=== PATIENT | female | born 1975 | race Caucasian/White ===

== ENCOUNTER 2018-03-12 08:36 | Emergency (ER) | END 2018-03-12 11:45 | disposition home or self-care (01) ==

== ENCOUNTER 2018-03-14 13:13 | Emergency (ER) | END 2018-03-14 16:50 | disposition home or self-care (01) ==

== ENCOUNTER 2018-10-31 13:50 | Emergency (ER) | payer BC, MEDICAID ==
[~2018-10-31] VITALS: Wt 100.0 kg
[~2018-10-31 13:50] MED LIST: DICY20TA59; ESOM20CA; VIC
[2018-10-31 13:57] VITALS: BP 120/65; PULSE 65; RESP 18
--- NOTE | 2018-10-31 16:23 | ERD ---
ER Documentation Chief Complaint Chief Complaint 8 WEEKS WITH SPOTTING HPI 43-year-old G3, P1 8-week female with no reported past medical history who presents with complaint of single episode of vaginal spotting. Reports episode of vaginal spotting without clots approximate 20 minutes before this evaluation. Denies any prior episodes of spotting or bleeding prior to presentation. Has had mild intermittent bilateral back pain. Reports a miscarriage last year in March at 5 weeks. She is concerned that she may have having symptoms secondary to likely . She otherwise is without complaint, denying fevers, chills, chest pain, shortness of breath, nausea, vomiting, diarrhea, urinary symptoms. ROS All systems reviewed and are negative except as per history of present illness. Medications Home Meds Reported Medications Dicyclomine Hcl* (Bentyl*) 20 Mg Tablet 11/12/10 Esomeprazole Mag Trihydrate (Nexium) 20 Mg Capsule. 11/12/10 Acetaminophen/Hydrocodone (Vicodin) 1 Tab Tab 11/12/10 Allergies Allergies: Coded Allergies: No Known Allergy (Verified , 03/12/18) PMhx/Soc History of Surgery: Yes () Anesthesia Reaction: No Hx Neurological Disorder: No Hx Respiratory Disorders: No Hx Cardiac Disorders: No Hx Psychiatric Problems: No Hx Miscellaneous Medical Probl: No Hx Alcohol Use: No Hx Substance Use: No Hx Tobacco Use: No Smoking Status: Never smoker FmHx Family History: No diabetes, No coronary disease, No other Physical Exam Vitals Vital Signs Date Temp Pulse Resp B/P (MAP) Pulse Ox O2 O2 Flow FiO2 Time Delivery Rate 10/31/18 98.1 65 18 120/65 99 13:57 (83) Physical Exam Const: No acute distress Head: Atraumatic Eyes: Normal Conjunctiva ENT: Normal External Ears, Nose and Mouth. Neck: Full range of motion. No meningismus. Resp: Clear to auscultation bilaterally Cardio: Regular rate and rhythm, no murmurs Abd: Soft, non tender, non distended. Normal bowel sounds Skin: No petechiae or rashes Back: No midline or flank tenderness Ext: No cyanosis, or edema Neur: Awake and alert Psych: Normal Mood and Affect Result Diagram: 10/31/18 1535 Results 24 hrs Laboratory Tests Test 10/31/18 15:34 White Blood Count 8.8 10^3/ul Red Blood Count 4.75 10^6/ul Hemoglobin 14.2 g/dl Hematocrit 43.2 % Mean Corpuscular Volume 90.9 fl Mean Corpuscular Hemoglobin 29.9 pg Mean Corpuscular Hemoglobin Concent 32.9 g/dl Red Cell Distribution Width 13.2 % Platelet Count 357 10^3/UL Mean Platelet Volume 9.2 fl Immature Granulocytes % 0.200 % Neutrophils % 75.8 % Lymphocytes % 18.4 % Monocytes % 3.9 % Eosinophils % 1.4 % Basophils % 0.3 % Nucleated Red Blood Cells % 0.0 /100WBC Immature Granulocytes # 0.020 10^3/ul Neutrophils # 6.6 10^3/ul Lymphocytes # 1.6 10^3/ul Monocytes # 0.3 10^3/ul Eosinophils # 0.1 10^3/ul Basophils # 0.0 10^3/ul Nucleated Red Blood Cells # 0.0 10^3/ul Procedures/MDM 43-year-old 8-week female presents with vaginal bleeding/spotting. Likely secondary to her normal bleeding in early . Considered ectopic , spectrum of miscarriage/ (threatened, inevitable, incomplete, complete, septic) as well as causes of female-specific abdominal pain unrelated to (e.g., pelvic inflammatory disease with or without tubo-ovarian abscess, Xxib-Rukx-Rxceae, etc.). Also considered causes of abdominal pain that are not gender-specific (e.g., appendicitis, volvulus, small bowel obstruction, mesenteric adenitis, acute cholecystitis/choledocholithiasis and other biliary pathology, etc.). Patient well-appearing with normal vital signs. Gave patient s trict return precautions for worsening pain, increased vaginal bleeding, fever (temperature above 100.4F), lightheadedness/syncope or other concerns. Transvaginal/transabdominal ultrasound demonstrated at 8 weeks gestation. 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 H&H stable UA without evidence of acute infection DISPOSITION PLAN: We discussed follow up with the patient's primary care doctor within 24 to 48 hours. Patient counseled regarding my diagnostic impression and care plan. Prior to discharge all questions answered. Pt agrees with treatment plan and unders tands strict return precautions. Precautionary instructions provided including instructions to return to the ER if not improving or for any worsening or changing symptoms or concerns. Disclaimer: Inadvertent spelling and grammatical errors are likely due to EHR/dictation software use and do not reflect on the overall quality of patient care. Also, please note that the electronic time recorded on this note does not necessarily reflect the actual time of the patient encounter. Departure Diagnosis: Primary Impression: Vaginal bleeding in patient at less than 20 weeks ges... Condition: Stable Patient Instructions: Bleeding During Early Referrals: KERRI RAMIREZ (PCP) Additional Instructions: Call your primary care doctor TOMORROW for an appointment during the next 2-3 days.See the doctor sooner or return here if your condition worsens before your appointment time. JULIO ANDUJAR PA-C October 31, 2018 16:22
== END 2018-10-31 16:29 | disposition home or self-care (01) ==
LOC: FTE 13:50
DX: O20.9 Hemorrhage in early pregnancy, unspecified (principal); Z3A.08 8 weeks gestation of pregnancy
CPT/HCPCS: 76801; 81001; 84702; 85025; 86900; 86901; 87086

== ENCOUNTER 2018-11-15 10:01 | Emergency (ER) | payer BC, MEDICAID ==
[~2018-11-15] VITALS: Wt 100.0 kg
[2018-11-15 10:05] VITALS: BP 128/62; PULSE 72; RESP 18
[2018-11-15] MEDS ORDERED: SOD CHLORIDE 0.9% 1,000 ML IV STA (10:40)
[2018-11-15] MEDS ORDERED: METOCLOPRAMIDE 10 MG INJ IV ONE (11:00)
[2018-11-15] MEDS ORDERED: METO10TA92 PO (12:27)
--- NOTE | 2018-11-15 14:08 | ERD ---
ER Documentation Chief Complaint Chief Complaint 10 WKS PREG WITH NAUSEA AND VOMITING SINCE YESTERDAY SENT BY OB. NO VB/AP HPI Patient is a 43-year-old female, G3, P1, A1, presents the ER for concerns of nausea and vomiting which started yesterday. Patient was seen today at the [facility] [place] and referred to the ED for further work-up and management. Patient states she is been vomiting this entire morning. Patient proximal place 3-4 episodes of nonbloody, nonbilious vomiting. Patient denies any vaginal bleeding or pelvic pain. Patient denies any fevers or chills. Patient denies any dysuria, frequency, urgency or hematuria. Patient states her last menstrual period was on 09-02-18. ROS All systems reviewed and are negative except as per history of present illness. Medications Home Meds Active Scripts Metoclopramide* (Reglan*) 10 Mg Tablet, 10 MG PO Q6 PRN for NAUSEA AND/OR VOMITING, #10 TAB Prov:JEAN MARIE COX PA-C 11/15/18 Reported Medications Dicyclomine Hcl* (Bentyl*) 20 Mg Tablet 11/12/10 Esomeprazole Mag Trihydrate (Nexium) 20 Mg Capsule. 11/12/10 Acetaminophen/Hydrocodone (Vicodin) 1 Tab Tab 11/12/10 Allergies Allergies: Coded Allergies: No Known Allergy (Verified , 03/12/18) PMhx/Soc History of Surgery: Yes () Anesthesia Reaction: No Hx Neurological Disorder: No Hx Respiratory Disorders: No Hx Cardiac Disorders: No Hx Psychiatric Problems: No Hx Miscellaneous Medical Probl: No Hx Alcohol Use: No Hx Substance Use: No Hx Tobacco Use: No Smoking Status: Never smoker FmHx Family History: No diabetes Physical Exam Vitals Vital Signs Date Temp Pulse Resp B/P (MAP) Pulse Ox O2 O2 Flow FiO2 Time Delivery Rate 11/15/18 98.0 72 18 128/62 99 10:05 (84) Physical Exam GENERAL: Well-developed, well-nourished female. Appears in no acute distress. Speaking in full sentences. HEAD: Normocephalic, atraumatic. EYES: Pupils are equally reactive bilaterally. EOMs grossly intact. No conjunc tival erythema. ENT: Moist mucous membranes. No uvula deviation. No kissing tonsils. NECK: Supple. No meningismus. Normal range of motion of the neck. LUNG: Clear to auscultation bilaterally. No rhonchi, wheezing, rales or coarse breath sounds. HEART: Regular rate and rhythm. No murmurs, rubs or gallops. ABDOMEN: No scars, ecchymosis or rashes noted. Soft, nontender, and nondistended. Positive bowel sounds in all four quadrants. No rebound tenderness, no guarding. (-) McBurney's point tenderness. No CVA tenderness. EXTREMITIES: Equal pulses bilaterally. No peripheral clubbing, cyanosis or e matt. No unilateral leg swelling. NEUROLOGIC: Alert and oriented. Moving all four extremities without any difficulty. Normal speech. Steady gait. SKIN: Normal color. Warm and dry. No rashes or lesions. Result Diagram: 11/15/18 1054 Results 24 hrs Laboratory Tests Test 11/15/18 10:54 White Blood Count 10.4 10^3/ul Red Blood Count 4.38 10^6/ul Hemoglobin 13.3 g/dl Hematocrit 39.4 % Mean Corpuscular Volume 90.0 fl Mean Corpuscular Hemoglobin 30.4 pg Mean Corpuscular Hemoglobin Concent 33.8 g/dl Red Cell Distribution Width 13.0 % Platelet Count 342 10^3/UL Mean Platelet Volume 9.1 fl Immature Granulocytes % 0.400 % Neutrophils % 76.3 % Lymphocytes % 16.6 % Monocytes % 4.0 % Eosinophils % 2.4 % Basophils % 0.3 % Nucleated Red Blood Cells % 0.0 /100WBC Immature Granulocytes # 0.040 10^3/ul Neutrophils # 7.9 10^3/ul Lymphocytes # 1.7 10^3/ul Monocytes # 0.4 10^3/ul Eosinophils # 0.3 10^3/ul Basophils # 0.0 10^3/ul Nucleated Red Blood Cells # 0.0 10^3/ul Urine Color JACOB Urine Clarity SLIGHTLY CLOUDY Urine pH 6.0 Urine Specific Butler 1.028 Urine Ketones NEGATIVE mg/dL Urine Nitrite NEGATIVE mg/dL Urine Bilirubin NEGATIVE mg/dL Urine Urobilinogen 1+ mg/dL Urine Leukocyte Esterase NEGATIVE Arnold/ul Urine Microscopic RBC 1 /HPF Urine Microscopic WBC 1 /HPF Urine Squamous Epithelial Cells FEW /HPF Urine Bacteria FEW /HPF Urine Mucus MODERATE /HPF Urine Hemoglobin NEGATIVE mg/dL Urine Glucose NEGATIVE mg/dL Urine Total Protein NEGATIVE mg/dl Lipase 80 U/L Beta HCG, Quantitative 503780.0 mIU/ml Current Medications Medications Dose Sig/Genaro Start Time Status Last (Trade) Ordered Route PRN Stop Time Admin Dose Reason Admin Sodium 1,000 ml @ Q1H STAT 11/15/18 DC 11/15/18 Chloride 1,000 mls/hr IV 10:40 11/15/18 10:50 11:39 5 mg ONCE ONCE 11/15/18 DC 11/15/18 Metoclopramid IV 11:00 11/15/18 10:50 e HCl 11:01 (Reglan) Procedures/MDM ED COURSE: The patient was stable throughout ED course. I kept the patient and/or family informed of laboratory and diagnostic imaging results throughout the ED course. DIAGNOSTIC IMAGING: Read by radiologist. Patient: FAINA SLOAN : 1975 Age: 43 Sex: F MR #: [id number] DOS: 11/15/18 1040 Ordering MD: JEAN MARIE COX PA-C Location: [facility] Room/Bed: PROCEDURE: US OB. CLINICAL INDICATION: Pelvic pain TECHNIQUE: Transabdominal and transvaginal views of the pelvis are available for review. COMPARISON: US PELVIS 10/31/2018 FINDINGS: There is a single intrauterine gestation with the crown-rump length measuring 4.3 cm and the gestational sac measures 4.6 cm, corresponding to a gestational age of 10 weeks and 6 days. The heart rate is noted at 163 bpm. The right ovary was not visualized. The left ovary measures 4.6 x 2.3 x 1.9 cm. There is no free fluid. RPTAT: AA IMPRESSION: Single live intrauterine with an estimated gestational age of 10 weeks and 6 days, based on ultrasound measurements. CHRISTIN based on ultrasound measurements is 06/07/19. .Ron Moe MD, Date Time Electronically viewed and signed by .Ron Moe MD, on 11/15/2018 11:29 .S/ CC: JEAN MARIE COX PA-C [id number] MEDICAL DECISION MAKING: This is a 43-year-old female, G3, P1, A1, presents the ER for concerns of nausea vomiting since yesterday. Patient was referred from the [facility] clinic for further work-up and management of her symptoms.. Vital signs were reviewed. Patient was afebrile. IV line was established. Blood work was obtained. CBC showed no evidence of systemic infection or severe anemia. Lipase showed no evidence of acute pancreatitis. UA showed no evidence of acute infection or hematuria. Patient's ultrasound showed single live intrauterine gestation approximately 10 weeks and 6 days. Patient was given IV fluids and Reglan. Upon reexamination, patient noted significant improvement in symptoms. Patient was noted to be eating she does with no signs of distress. Patient had no additional episodes of vomiting throughout the ED course. At this time, patient's presentation is most consistent with nausea and vomiting in the setting of . Differential diagnosis included was not limited to gravidarum, acute coronary syndrome, AAA, mesenteric ischemia, lower lobe pneumonia, DKA, bowel perforation, cholecystitis, choledocholithiasis, ascending cholangitis, hepatic abscess, pancreatitis, PUD, gastritis, GERD, splenic rupture, diverticulitis, UTI, pyelonephritis, nephrolithiasis, appendicitis. Patient was nontoxic, [id number] prior to discharge. PRESCRIPTIONS: Reglan DISCHARGE: At this time, patient is stable for discharge and outpatient management. I have instructed the patient to follow-up with his/her primary care physician in 1-2 days. I have instructed the patient to promptly return to the ER at any time for any new or worsening symptoms including increased pain, nausea, vomiting, diarrhea, fever, weakness or LOC. The patient and/or family expressed understanding of and agreement with this plan. All questions were answered. Home care instructions were provided. Disclaimer: Inadvertent spelling and grammatical errors are likely due to EHR/dictation software use and do not reflect on the overall quality of patient care. Also, please note that the electronic time recorded on this note does not necessarily reflect the actual time of the patient encounter. Departure Diagnosis: Primary Impression: Nausea and vomiting Additional Impression: Condition: Fair Patient Instructions: Nausea and Vomiting-Adult Referrals: KERRI RAMIREZ (PCP) Additional Instructions: Llame al doctor MAANA y raisa gerardo KELVIN PARA DENTRO DE 1-2 LI.Dgale a la secretaria que nosotros le instruimos hacer esta kelvin.Avise o llame si florez condicin se empeora antes de la kelvin. Regresa aqui si peor o no mejor. JEAN MARIE COX PA-C Nov 15, 2018 14:07
== END 2018-11-15 12:38 | disposition home or self-care (01) ==
LOC: FTE 10:01
DX: O21.9 Vomiting of pregnancy, unspecified (principal); R10.2 Pelvic and perineal pain; Z3A.10 10 weeks gestation of pregnancy
CPT/HCPCS: 36415; 76801; 76817; 81001; 83690; 84702; 85025; 86900; 86901; 96361; 96374; J2765; J7030; Z7502; 81003